=== PATIENT | female | born 2000 | race African-American/Black ===

== ENCOUNTER → 2024-02-12 | Outpatient (CLI) | payer OTHER | LOC: M RAD 15:07 | PROVIDERS: ATTEND Physician Assistant | DX: M25.531 Pain in right wrist (principal) ==

== ENCOUNTER 2025-10-05 15:29 | Inpatient (IN) | payer OTHER ==
[~2025-10-05] VITALS: Ht 162.6 cm; Wt 25.6 kg
[2025-10-05 16:23] LABS: PLATELET COUNT, AUTOMATED 395 10^3/uL (150-450)
[2025-10-05 16:48] LABS: AMPHETAMINES LEVEL URINE NEGATIVE (NEGATIVE); BARBITURATES URINE NEGATIVE (NEGATIVE); BENZODIAZEPINES URINE NEGATIVE (NEGATIVE); CANNABINOIDS URINE NEGATIVE (NEGATIVE); COCAINE METABOLITE URINE NEGATIVE (NEGATIVE); METHADONE URINE NEGATIVE (NEGATIVE); OPIATES URINE NEGATIVE (NEGATIVE); PHENCYCLIDINE URINE NEGATIVE (NEGATIVE)
[2025-10-05 16:49] LABS: ETHYL ALCOHOL (ETHANOL) < 0.003 % (0.000-0.010)
[2025-10-05 16:51] LABS: ALT/SGPT 9 U/L (7.0-40); AST/SGOT 19 U/L (<34); CALCIUM LEVEL 8.5 MG/DL (8.5-10.1); CARBON DIOXIDE LEVEL 26 MMOL/L (20-31); CHLORIDE LEVEL 104 MMOL/L (98-107); CREATININE FOR GFR 0.65 MG/DL (0.55-1.30); GLOMERULAR FILTRATION RATE > 90.0 (>60); POTASSIUM SERUM 4.0 MMOL/L (3.5-5.1); SALICYLATE LEVEL < 3.0 MG/DL (<30); SODIUM LEVEL 139 MMOL/L (136-145)
[2025-10-05 17:23] LABS: HCG, SERUM QUALITATIVE NEGATIVE (NEGATIVE)
[2025-10-05] MEDS ORDERED: ACETAMINOPHEN 325 MG TAB PO PRN (18:10)
[2025-10-05] MEDS ORDERED: traZODone 50 MG TAB PO PRN (18:10)
[2025-10-05] MEDS ORDERED: MOM 30 ML SUSPENSION UDC PO PRN (18:10)
[2025-10-05] MEDS ORDERED: MAALOX 30 ML SUSP *UDC PO PRN (18:10)
[2025-10-05] MEDS ORDERED: HOME MED LIST COMPLETE! XX SCH (18:40)
[2025-10-05 22:24] VITALS: BP 135/78; TEMP 97.6; O2SAT 100
[2025-10-06] MEDS: SERTRALINE HCL 25 MG TABLET PO ONE (09:31)
[2025-10-06 17:31] LABS: FREE T4 0.97 NG/DL (0.89-1.76)
[2025-10-07 06:22] VITALS: BP 131/61; TEMP 97.6; O2SAT 100
[2025-10-07] MEDS: SERTRALINE HCL 50 MG TAB PO SCH (08:42)
[2025-10-07 15:26] VITALS: BP 131/78; TEMP 98; O2SAT 97
[2025-10-08 06:30] VITALS: BP 137/71; TEMP 97.6; O2SAT 100
[2025-10-08] MEDS: IBUPROFEN 400 MG TAB PO PRN (09:35)
[2025-10-08 15:34] VITALS: BP 126/78; TEMP 97.7; O2SAT 100
[2025-10-09 06:55] VITALS: BP 122/73; TEMP 97.5; O2SAT 99
[2025-10-09] MEDS ORDERED: SERT50TA29 PO (09:23)
[2025-10-09] MEDS ORDERED: HYDR50TA70 PO (09:23)
== END 2025-10-09 11:57 | disposition home or self-care (01) | DRG 882 ==
LOC: EDBD 15:29 → M ED 15:29 → M ED INP 18:09 → M PSY 22:18
PROVIDERS: ADMIT Student in an Organized Health Care Education/Training Program; ATTEND Student in an Organized Health Care Education/Training Program
DX: F43.23 Adjustment disorder with mixed anxiety and depressed mood (principal); R45.851 Suicidal ideations; E07.9 Disorder of thyroid, unspecified; D64.9 Anemia, unspecified; Z56.6 Other physical and mental strain related to work; Z65.3 Problems related to other legal circumstances